=== PATIENT | female | born 1995 | race African-American/Black ===

== ENCOUNTER 2017-02-14 16:56 | Emergency (ER) | payer OTHER ==
--- NOTE | ~2017-02-14 | CR20 ---
[facility] A Service of [facility] & [facility] RADIOLOGY TEXT RESULTS PATIENT: LAURA JACKSON LOCATION: SED : [birth year] UNIT #: [id number] AGE: [address]: Geri Sierra SEX: F ORDER DR: [id number] [address] [id number] E MR#: [id number] Acc #: [id number] NAME: LAURA JACKSON : 1995 SEX: F STUDY DATE/TIME: 02/14/2017 17:13 UNIT: SED ROOM: STUDY DESCRIPTION: CR Ankle Min 3 Views Lt Attending Physician: Geri Sierra Pa-C Ordering Physician: Ronnie Fox Primary Care Physician: Primary Care Physician No MEDICAL IMAGING REPORT This report is preliminary unless electronic signature is present. EXAM Left ankle, 02/14/2017 INDICATION 21-year-old female who sustained a basketball injury yesterday, twisted the ankle, has pain. TECHNIQUE 3 views of the left ankle, no comparisons FINDINGS There is mild to early moderate lateral soft tissue swelling but no acute fracture. Ankle mortise intact. IMPRESSION Lateral soft tissue swelling, otherwise negative. Dictated by... Jos Sanchez M.D. THIS IS AN ELECTRONICALLY VERIFIED REPORT Jos Sanchez M.D. at 02/15/2017 11:30 AM Nadia TD: 02/14/2017 23:13 JOB #: [id number] MEDICAL IMAGING REPORT Page 1 of 1
== END 2017-02-14 18:34 | disposition home or self-care (01) ==
LOC: SED 16:56
DX: S93.422A Sprain of deltoid ligament of left ankle, initial encounter (principal); X50.1XXA Overexertion from prolonged static or awkward postures, initial encounter; Y93.67 Activity, basketball; Y92.9 Unspecified place or not applicable
CPT/HCPCS: 29540; 73610; 99283